=== PATIENT | female | born 1930 | race Caucasian/White ===

== ENCOUNTER 2016-10-18 10:09 | Day surgery (SDC) ==
[2015-06-03 13:47] VITALS: BMI 21.0
[2016-10-18] MEDS ORDERED: DIPRIVAN 20 ML VIAL IVP ONE (12:00)
[2016-10-18 13:42] VITALS: BP 173/70; TEMP 98.2
--- NOTE | 2016-10-19 10:21 | OP ---
INDICATIONS FOR PROCEDURE: 86-year-old female with past history of colon polyps with last colonoscopy 3 years ago presents for colonoscopy exam. She has a history of a large hyperplastic polyp in the ascending colon partially removed in the past. MEDICATIONS: SEE ANESTHESIA NOTES. PROCEDURE: COLONOSCOPY, SNARE POLYPECTOMY, SALINE INJECTION, BIOPSY. REPORT: The risks, benefits, alternatives and limitations were discussed in detail with the patient. Informed consent was obtained. After adequate sedation was achieved, a digital rectal exam revealed good tone, no masses. The colonoscope was introduced into the rectum and advanced under direct visual guidance to the cecum. The cecum was identified by the appendiceal orifice and IC valve. On the edge of the cecum there was a 5 mm sightly raised polyp. I removed this by snare technique. This polyp was not retrieved. In the proximal mid ascending colon I once again identified a carpeting polyp. This appeared to be close to 2 cm in size. In the past, pathology suggested hyperplastic changes but this did not appear hyperplastic, it appeared possibly adenomatous. I was able to biopsy the edges of this to get histological review. I then injected saline at the base of the polyp and raised it. Once successful saline lift was achieved, I removed the polyp by piecemeal technique. I then placed two clips over the polypectomy site for closure and to help prevent future possible bleeding. No polyp tissue was remaining that I could tell. I then slowly withdrew the scope in circumferential manner examining the remaining colon which was unremarkable its entire length including on retroflex view of the anal canal. The prep was adequate. The patient tolerated the procedure well with stable vital signs and pulse oximetry throughout. IMPRESSION: 1. Two (2) polyps removed from the right colon as above. RECOMMENDATIONS: 1. I am going to have her hold her Coumadin and Lovenox for 3 days then restart it. I will talk to her and her family and caregivers about post polypectomy bleeds again and the risk of what to watch for and do. 2. Await pathology results. If everything is benign, I recommend future colonoscopies on an as needed only basis. This is based on her advanced age and overall health. 3. Will see her back in the office as needed. CC: DR. JOSE M HUSTON
== END 2016-10-18 13:50 | disposition home or self-care (01) ==
LOC: SURG 10:09
PROVIDERS: ATTEND Internal Medicine Gastroenterology
DX: Z86.010 Personal history of colon polyps (principal); D12.2 Benign neoplasm of ascending colon; K63.5 Polyp of colon; E11.9 Type 2 diabetes mellitus without complications
CPT/HCPCS: 82962

== ENCOUNTER 2017-09-20 12:24 | Emergency (ER) ==
[2017-09-20 12:29] VITALS: BP 165/80; TEMP 97.3; BMI 21.2
--- NOTE | 2017-09-20 12:56 | ED.PDOC ---
General ED Provider: Dr. JAIME DENSON JR Chief Complaint: Nausea/Vomiting Stated Complaint: vomiting yesterday cramping all over[ End ]97.3 61 20 98% 165 /80. 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[End ] Time Seen by Physician: 12:55 Mode of Arrival: Walk-In Information Source: Patient Exam Limitations: No limitations Primary Care Provider: OSBALDO ROSE Nursing and Triage Documentation Reviewed and Agree: No Reviewed sepsis parameters & appropriate labs ordered?: Yes System Inflammatory Response Syndrome: Not Applicable Sepsis Protocol: For patient's 13 years and over: Temp is 96.8 and below OR 101 and greater Pulse >90 BPM Resp >20/minute Acutely Altered Mental Status Are patient's symptoms suggestive of a new infection, such as: -Pneumonia -Skin, Soft Tissue -Endocarditis -UTI -Bone, Joint Infection -Implantable Device -Acute Abdominal Infection -Wound Infection -Meningitis -Blood Stream Catheter Infection -Unknown System Inflammatory Response Syndrome: Not Applicable Review of Systems - Review Of Systems Constitutional: Reports: Malaise, Weakness Eyes: Reports: No symptoms Ears, Nose, Mouth, Throat: Reports: No symptoms Respiratory: Reports: No symptoms Cardiac: Reports: No symptoms GI: Reports: Abdominal pain, Diarrhea, Nausea, Vomiting : Reports: No symptoms Musculoskeletal: Reports: No symptoms Skin: Reports: No symptoms Neurological: Reports: Cognitive dysfunction, Weakness Endocrine: Reports: No symptoms Hematologic/Lymphatic: Reports: No symptoms All Other Systems: Other Past Medical History - Past Medical History Endocrine: Reports: DM 2 Cardiovascular: Reports: CAD, Hypertension Respiratory: Reports: None Hematological: Reports: None Gastrointestinal: Reports: None Genitourinary: Reports: None Neuro/Psych: Reports: CVA Musculoskeletal: Reports: None Cancer: Reports: None Last Menstrual Period: n/a - Surgical History General Surgical History: Reports: Orthopedic (LEFT HIP REPLACEMENT X 2) - Family History Family History: Reports: Unknown - Social History Smoking Status: Former smoker Hx Substance Use: No Alcohol Screening: None Physical Exam - Physical Exam Appearance: Well-appearing Ill-appearing: Mild Pain Distress: Mild Eyes: MICHAEL ENT: Ears normal, Nose normal, Oropharynx normal Neck: Supple Respiratory: Airway patent Cardiovascular: RRR, Pulses normal, No rub, No murmur GI/: Soft, Nontender, No masses, Bowel sounds normal, No Organomegaly Musculoskeletal: ROM intact, Limited strength Skin: Warm, Dry Neurological: Sensation intact, Alert, Disoriented Psychiatric: Affect appropriate, Mood appropriate Physician Notification - Case Discussed Physician Notified: dr rose Time of Notification: 15:36 (wilver mcleod follow up) Critical Care Note - Critical Care Note Total Time (mins): 0 Course - Course Hematology/Chemistry: 09/20/17 13:35 09/20/17 13:35 Orders, Labs, Meds: Lab Review 09/20/17 09/20/17 09/20/17 13:35 13:35 13:35 WBC 7.92 RBC 4.13 L Hgb 11.7 L Hct 35.6 L MCV 86.2 MCH 28.3 MCHC 32.9 RDW Coeff of Kenneth 13.9 Plt Count 200 Immature Gran % (Auto) 0.6 Neut % (Auto) 73.0 Lymph % (Auto) 19.4 [place] % (Auto) 5.8 Eos % (Auto) 0.8 Baso % (Auto) 0.4 Immature Gran # (Auto) 0.1 Neut # 5.8 Lymph # 1.5 [place] # 0.5 Eos # 0.1 Baso # 0.0 Sodium 138 Potassium 4.3 Chloride 99 Carbon Dioxide 30 Anion Gap 13.3 BUN 14 Creatinine 0.86 Estimated GFR (MDRD) 62.00 BUN/Creatinine Ratio 16.27 Glucose 145 H Calcium 9.8 Total Bilirubin 0.8 AST 15 ALT 13 Alkaline Phosphatase 66 Total Protein 6.8 Albumin 3.7 Globulin 3.1 Albumin/Globulin Ratio 1.19 Amylase 55 Lipase 28 Urine Color Urine Clarity Urine pH Ur Specific [place] Urine Protein Urine Glucose (UA) Urine Ketones Urine Blood Urine Nitrite Urine Bilirubin Urine Urobilinogen Ur Leukocyte Esterase Urine Microscopic RBC Urine Microscopic WBC Ur Squamous Epith Cells H. pylori IgG Antibody Negative 09/20/17 13:55 WBC RBC Hgb Hct MCV MCH MCHC RDW Coeff of [place] Plt Count Immature Gran % (Auto) Neut % (Auto) Lymph % (Auto) [place] % (Auto) Eos % (Auto) Baso % (Auto) Immature Gran # (Auto) Neut # Lymph # [place] # Eos # Baso # Sodium Potassium Chloride Carbon Dioxide Anion Gap BUN Creatinine Estimated GFR (MDRD) BUN/Creatinine Ratio Glucose Calcium Total Bilirubin AST ALT Alkaline Phosphatase Total Protein Albumin Globulin Albumin/Globulin Ratio Amylase Lipase Urine Color Yellow Urine Clarity Clear Urine pH 8.0 Ur Specific [place] 1.015 Urine Protein Negative Urine Glucose (UA) Negative Urine Ketones Negative Urine Blood 2+ Urine Nitrite Negative Urine Bilirubin Negative Urine Urobilinogen 0.2 Ur Leukocyte Esterase Trace Urine Microscopic RBC 2-5 Urine Microscopic WBC 5-10 Ur Squamous Epith Cells 10-20 H. pylori IgG Antibody Orders Category Date Time Status AMYLASE Stat LAB 09/20/17 13:35 Completed CBC W/ AUTO DIFF Stat LAB 09/20/17 13:35 Completed COMPREHENSIVE METABOLIC PANEL Stat LAB 09/20/17 13:35 Completed H. PYLORI SCREEN Stat LAB 09/20/17 13:35 Completed LIPASE Stat LAB 09/20/17 13:35 Completed URINALYSIS C & S IF INDICATED Stat LAB 09/20/17 13:55 Completed URINE CULTURE Routine LAB 09/20/17 13:58 Received Vital Signs: Temp Pulse Resp BP Pulse Ox 09/20/17 12:25 97.3 F L 61 20 165/80 H 98 Departure - Departure Time of Disposition: 15:16 Disposition: HOME SELF-CARE Discharge Problem: Nausea, Vomiting, UTI (urinary tract infection) with pyuria Diarrhea Qualifiers: Diarrhea type: infectious Qualified Code(s): A09 - Infectious gastroenteritis and colitis, unspecified Instructions: Urinary Tract Infection in Women (ED), Acute Nausea and Vomiting (ED), Acute Diarrhea (ED) Condition: Good Pt referred to PMD for follow-up: Yes Additional Instructions: clear liquids for 8-12 hours after nausea urine shows evidence of infection- take antobiotic for one week and recheck urine after off antibiotic return if fever over 101.0 return if worse recheck PMD 7-10 days Prescriptions: Diphenoxylate HCl/Atropine [Lomotil 2.5-0.025 mg Tablet] 1 each PO 5XD PRN #12 tablet PRN Reason: Diarrhea Nitrofurantoin Monohyd/M-Cryst [Macrobid] 100 mg PO BID #14 capsule Ondansetron HCl [Zofran] 4 mg PO QID PRN #12 tablet PRN Reason: Nausea / Vomiting Promethazine HCl [Phenergan Tab] 25 mg PO QID PRN #12 tablet PRN Reason: Nausea / Vomiting Allergies/Adverse Reactions: Allergies No Known Allergies Allergy (Verified 09/20/17 12:32) Home Medications: Ambulatory Orders Ferrous Sulfate 325 mg PO BID 04/29/13 Lisinopril [Zestril] 40 mg PO BID 04/29/13 Simvastatin 40 mg PO DAILY 04/29/13 Warfarin Sodium [Coumadin] 2 mg PO QPM 04/30/13 Donepezil HCl [Aricept] 10 mg PO BEDTIME 02/04/15 Aspirin [Aspirin EC] 81 mg PO DAILY 06/03/15 Digoxin [Lanoxin] 125 mcg PO DAILY 06/03/15 Metformin HCl [Glucophage] 1,000 mg PO BIDWM 06/03/15 Amlodipine Besylate [Norvasc] 5 mg PO DAILY #30 tablet 06/07/15 Carvedilol [Coreg] 25 mg PO BID #60 tablet 06/07/15 Pantoprazole Sodium [Protonix] 40 mg PO DAILY 10/18/16 Diphenoxylate HCl/Atropine [Lomotil 2.5-0.025 mg Tablet] 1 each PO 5XD PRN #12 tablet 09/20/17 Furosemide [Lasix Tab] 20 mg PO QDAC 09/20/17 Meclizine HCl [Antivert] 25 mg PO DAILY PRN 09/20/17 Nitrofurantoin Monohyd/M-Cryst [Macrobid] 100 mg PO BID #14 capsule 09/20/17 Ondansetron HCl [Zofran] 4 mg PO QID PRN #12 tablet 09/20/17 Promethazine HCl [Phenergan Tab] 25 mg PO QID PRN #12 tablet 09/20/17
[2017-09-20 13:42] LABS: BASOPHILS % (AUTO) 0.4 % (0.0-3.0); EOSINOPHILS # (AUTO) 0.1 K/ul (0.0-0.7); EOSINOPHILS % (AUTO) 0.8 % (0.0-7.0); HEMATOCRIT 35.6 % (37.0-47.0); HEMOGLOBIN 11.7 g/dl (12.0-16.0); IMMATURE GRANULOCYTE % (AUTO) 0.6 % (0.0-5.0); LYMPHOCYTES # (AUTO) 1.5 K/uL (0.60-3.4); LYMPHOCYTES % (AUTO) 19.4 (10.0-50.0); MEAN CORPUSCULAR HEMOGLOBIN 28.3 pg (27.0-31.0); MEAN CORPUSCULAR HGB CONC 32.9 (31.8-35.4); MEAN CORPUSCULAR VOLUME 86.2 fl (81.0-99.0); MONOCYTES # (AUTO) 0.5 K/uL (0.4-2.0); MONOCYTES % (AUTO) 5.8 (0-10); NEUTROPHILS # (AUTO) 5.8 K/ul (2.0-6.9); PLATELET COUNT 200 10^3/uL (140-440); RED BLOOD COUNT 4.13 10^6/ul (4.20-5.40); WHITE BLOOD COUNT 7.92 K/ul (4.6-10.2)
[2017-09-20 13:58] LABS: ALBUMIN 3.7 g/dL (3.4-5.0); ALBUMIN/GLOBULIN RATIO 1.19; ANION GAP 13.3; BILIRUBIN,TOTAL 0.8 mg/dL (0.00-1.20); BUN/CREATININE RATIO 16.27; CALCIUM 9.8 mg/dL (8.2-10.2); CREATININE 0.86 mg/dL (0.60-1.30); POTASSIUM 4.3 mmol/L (3.5-5.10); TOTAL PROTEIN 6.8 g/dL (5.8-8.1)
[2017-09-20 14:02] LABS: H. PYLORI ANTIBODY NEGATIVE (NEGATIVE); H.PYLORI INTERNAL QC INTERNAL QC VALID
[2017-09-20 14:23] LABS: BILIRUBIN,URINE Negative (NEGATIVE); KETONES,URINE Negative (NEGATIVE); LEUKOCYTE ESTERASE ,URINE Trace (NEGATIVE); NITRITE,URINE Negative (NEGATIVE); PROTEIN,URINE Negative (NEGATIVE); URINE, BLOOD 2+ (NEGATIVE)
[2017-09-20 14:27] LABS: ADD URINE MICROSCOPIC YES
== END 2017-09-20 15:39 | disposition home or self-care (01) ==
LOC: ED 12:24
DX: A09 Infectious gastroenteritis and colitis, unspecified (principal); N39.0 Urinary tract infection, site not specified; E11.9 Type 2 diabetes mellitus without complications; I10 Essential (primary) hypertension; I25.10 Atherosclerotic heart disease of native coronary artery without angina pectoris; Z79.899 Other long term (current) drug therapy
CPT/HCPCS: 36415; 80053; 81001; 82150; 83690; 85025; 86677; 87086; 99283

== ENCOUNTER 2017-10-03 10:02 | Outpatient (CLI) | END 2017-10-03 10:03 | disposition short-term general hospital (02) | LOC: AMBL 10:02 | PROVIDERS: ATTEND Internal Medicine | DX: K92.1 Melena (principal); M25.551 Pain in right hip ==

== ENCOUNTER 2017-10-05 17:30 | Outpatient (CLI) | END 2017-10-05 17:31 | disposition hospice, home (50) | LOC: AMBL 17:30 | PROVIDERS: ATTEND Emergency Medicine | DX: K92.2 Gastrointestinal hemorrhage, unspecified (principal) ==